=== PATIENT | female | born 1970 | race Hispanic/Latino ===

== ENCOUNTER → 2018-08-09 | Outpatient (CLI) | payer BC ==
--- NOTE | 2018-08-10 09:09 | Diagnostic Imaging Report ---
EXAMINATION: Transvaginal ultrasound. CLINICAL INDICATION: Dysfunctional uterine bleeding COMPARISON: None DISCUSSION: Transverse and sagittal transvaginal images were obtained of the pelvis with supplemental transabdominal images. The uterus is anteverted and normal in size measuring 8.7 x 5 x 5.9 cm. The endometrial stripe is homogeneous, normal in thickness and measures 0.6 centimeters. A fibroid in the posterior uterus measuring 2.7 x 2.4 x 2.9 cm. The ovaries are normal in size and echogenicity. The right ovary measures 4 x 2.4 x 2.8 centimeters. The left ovary measures 3.9 x 2.4 x 2 centimeters. Bilateral follicles. No free fluid or pelvic masses are seen. IMPRESSION: 2.9 cm posterior fibroid, otherwise unremarkable pelvic ultrasound. Signed by: Dr. Colt Fragoso M.D. on 08/10/2018 9:06 AM
== END ==
LOC: US 15:58
PROVIDERS: ATTEND Family Medicine
DX: N93.8 Other specified abnormal uterine and vaginal bleeding (principal)
CPT/HCPCS: 76830

== ENCOUNTER → 2022-03-17 | Outpatient (CLI) | payer BC | LOC: RAD 09:29 | PROVIDERS: ATTEND Family Medicine | DX: M79.672 Pain in left foot (principal) ==